=== PATIENT | female | born 1960 | race Caucasian/White ===

== ENCOUNTER 2017-08-07 07:38 | Day surgery (SDC) | payer OTHER ==
[2017-08-01 11:50] VITALS: BMI 23.0
--- NOTE | 2017-08-06 11:59 | HP ---
[facility] - Chief Complaint Chief Complaint: This patient is admitted to investigate a thickened endometrium probably due to a polyp of the uterus. History of Present Illness: This patient recently had a sonogram of the pelvis to investigte pelvic pain and was found to have a possible polyp of the uterus. 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: Alzheimer's, CVA, Dementia, Migraine, Multiple Sclerosis, Peripheral Neuropathy, Parkinson's, Seizure, Syncope, TIA, Vertigo, Other Cardiovascular: No: AFIB, Aneurysm, Aortic Insufficiency, Aortic Stenosis, CAD, CHF, Deep Vein Thrombosis, HTN, Hyperlipdemia, NV, Mitral Insufficiency, Mitral Stenosis, Murmur, Pulmonary Hypertension, Other Pulmonary: No: Asthma, Bronchitis, Cancer, COPD, O2 Dependent, Pneumonia, Previously Intubated, Pulmonary Embolus, Pulmonary Fibrosis, Sleep Apnea, Other Gastrointestinal: No: Ascites, Cancer, Constipation, Crohn's Disease, Diverticulitis, Diverticulosis, Esophageal Varices, Gastritis, GERD, GI Bleed, Hemorrhoids, Hiatal Hernia, Inflamatory Bowel Disease, Irritable Bowel Disease, Pancreatitis, Peptic Ulcer Disease, Ulcerative Colitis, Other Hepatobiliary: No: Cirrhosis, Cholelithiasis, Cholecystitis, Choledocholithiasis , Hepatitis A, Hepatitis B, Hepatitis C, Other Renal/: No: Renal Failure, Renal Inusuff, BPH, Cancer, Hematuria, Hemodialysis , Neurogenic Bladder, Renal Calculi, UTI, Other Reproductive: No: Ectopic , Endometriosis, Fibroids, PID, Polycystic Ovary Syndrome, Postmenopausal, Other ...: No ...: 1 ...Para: 1 Heme/Onc: No: Anemia, B12 Deficiency, Bleeding Disorder, Cancer, Current Chemotherapy, Current Radiation Therapy, Hemochromatosis, Hypercoaguable State, Myeloproliferative Synd, Sickle Cell Disease, Sickle Cell Trait, Thrombocytopenia, Other Infectious Disease: No: AIDS, C-Diff, Herpes Zoster, HIV, MRSA, STD's, Tuberculosis, VREF, Other Musculoskeletal: No: Bursitis, Chronic low back pain, Hemiparesis, Hemiplegia, Osteoarthritis, Paraplegia, Other Rheumatology: No: Fibromyalgia, Gout, Lupus, Rheumatoid Arthritis, Sarcoidosis, Vasculitis, Other ENT: No: Allergic Rhinitis, Sinusitis, Other Endocrine: No: Braymer's Disease, Jim's Disease, Diabetes Insipidus, Diabetes Mellitus, Hyperparathyroidism, Hyperthyroidism, Hypothyroidism, Osteopenia, SIADH, Other Dermatology: No: Basal Cell, Cellulitis, Eczema, Melanoma, Psoriasis, Squamous Cell, Other - Current Medications Current Medications: Home Medications Medication Instructions Recorded Nabumetone 750 mg PO PRN PRN 08/01/17 Satellite Physical Exam - Physical Examination General Appearance: Well Nourished, Well Developed, Alert & Oriented x3 ENT: Clear, No Discharge, No masses Lung: Clear to auscultation Heart: Regular rate & rhythm, Normal S1, Normal S2 Breasts: Soft, Non-Tender, No masses bilaterally Abdomen: Soft, No tenderness, No CVA Extremities: No edema, No tenderness/swelling Pelvic Exam: Within normal limits External Genitalia, Within normal limits Vagina, Within normal limits Cervix, Within normal limits Uterus, Within normal limits [facility] Neurological: Intact, Alert, Oriented Satellite Impression/Plan - Impression/Plan Impression: polyp of uterus Operative Procedure: hysteroscopy with D/C Date to be Performed: 08/07/17
[2017-08-07] MEDS ORDERED: PROPOFOL 20 ML ONE (08:48)
[2017-08-07] MEDS ORDERED: MIDAZOLAM HCL 2 MG/2 ML SINGLE DOSE VIAL ONE (08:48)
[2017-08-07] MEDS ORDERED: ONDANSETRON 4 MG/2 ML VIAL ONE (09:05)
[2017-08-07] MEDS ORDERED: KETOROLAC TROMETHAMINE 30 MG/1 ML VIAL ONE (09:06)
[2017-08-07] MEDS ORDERED: ONDANSETRON 4 MG/2 ML VIAL IVPUSH PRN (09:33)
[2017-08-07] MEDS ORDERED: ACETAMINOPHEN 500 MG TABLET (FP) PO PRN (09:33)
[2017-08-07] MEDS ORDERED: oxyCODONE HCL 5 MG TABLET PO PRN (09:33)
[2017-08-07] MEDS ORDERED: LACTATED RINGERS SOLUTION 1,000 ML IV SCH (09:45)
[2017-08-07 10:18] VITALS: TEMP 98
--- NOTE | 2017-08-07 10:40 | OP ---
DATE OF OPERATION: 08/07/2017 PREOPERATIVE DIAGNOSIS: Endometrial polyp, thickened endometrium. POSTOPERATIVE DIAGNOSIS: Thickened endometrium. SURGEON: Sj Barth MD ANESTHESIA: Given by Claudia Dominguez MD. It was a MAC type anesthesia. ESTIMATED BLOOD LOSS: 10 mL or less. DESCRIPTION OF PROCEDURE: This patient was brought to the operating room, placed in the supine position, given anesthesia by Dr. Dominguez, placed in the lithotomy position, prepped and draped in the usual manner. The patient was examined. The uterus was noted to be anteverted. Adnexa negative. A speculum was placed into the vagina. The anterior lip of the cervix was grasped with a tenaculum. The uterus was sounded to approximately 6 cm. The cervix was dilated with Parker dilators. Hysteroscopy was performed. The endometrial cavity appeared normal. No polyps were noted. The dilatation and curettage was carried out with a small curette. A small amount of tissue was obtained. An endocervical curettage was also carried out with a small curette. Very little tissue was obtained from that procedure, as well. The patient tolerated the procedure well. The hemostasis was good. After the operation was completed, the speculum and the tenaculum were removed from the vagina, and the patient was then transferred to the recovery room in good condition. SJ BARTH M.D. [place]/[id number]
[2017-08-07] MEDS ORDERED: ACETAMINOPHEN 325 MG TABLET (FP) PO ONE (11:15)
[2017-08-07] MEDS ORDERED: ACETAMINOPHEN 325 MG TABLET (FP) ONE (11:16)
[2017-08-07 11:31] VITALS: BP 116/69; PULSE 73
--- NOTE | 2017-08-08 11:13 | PATH ---
Surgical Pathology Report Patient Name: TESS TRAN [facility]. Rec. #: [id number] /Age/Gender: 1960 (Age: 57) / F Account: [id number] Location: [facility] SURGICAL Taken: 08/07/2017 Received: 08/07/2017 Reported: 08/08/2017 Physicians: Sabino Barth M.D. Specimen(s) Received A: ENDOMETRIAL CURETTINGS B: ENDOCERVICAL CURETTINGS Clinical History Polyp of corpus uteri Final Diagnosis A. ENDOMETRIUM, CURETTING: GLANDULAR EPITHELIUM SUGGESTIVE OF ATROPHIC ENDOMETRIUM, ALONG WITH BENIGN ENDOCERVICAL EPITHELIUM AND SQUAMOUS EPITHELIUM. CLOTTED BLOOD IS PRESENT. B. ENDOCERVIX, CURETTING: SCANT BENIGN ENDOCERVICAL AND SQUAMOUS EPITHELIUM, AND CLOTTED BLOOD. Comment: Recommend correlation with clinical findings and follow up as clinically indicated. Electronically Signed Celestine Ye M.D. Gross Description A. Received in formalin labeled "endometrial curettings," is a 1.0 x 0.8 x 0.2 cm aggregate of diaz red soft tissue fragments. The formalin is filtered and the specimen is entirely submitted in one cassette. B. Received in formalin labeled "endocervical curetting," is a 0.4 x 0.3 x 0.2 cm aggregate of diaz red soft tissue fragments. The formalin is filtered and the specimen is entirely submitted in one cassette. 08/07/2017 saudi08/07/2017
== END 2017-08-07 11:45 | disposition home or self-care (01) ==
LOC: JASU-SURG 07:38
PROVIDERS: ATTEND Obstetrics & Gynecology
PROC: 0UDB8ZX Extraction of Endometrium, Via Natural or Artificial Opening Endoscopic, Diagnostic (ICD-10-PCS; principal; 2017-08-07 08:30)
DX: N84.0 Polyp of corpus uteri (principal); R93.8 Abnormal findings on diagnostic imaging of other specified body structures
CPT/HCPCS: 88305-TC; 94760